=== PATIENT | male | born 1985 | race Caucasian/White ===

== ENCOUNTER 2020-05-20 13:30 | Emergency (ER) | payer OTHER ==
[~2020-05-20] VITALS: Ht 190.5 cm; Wt 136.1 kg
[2020-05-20] MEDS ORDERED: BACTRIM DS TAB1 EACH PO (16:04)
== END 2020-05-20 16:19 | disposition home or self-care (01) ==
LOC: ED 13:30
DX: L08.9 Local infection of the skin and subcutaneous tissue, unspecified (principal); I10 Essential (primary) hypertension; Z88.5 Allergy status to narcotic agent
CPT/HCPCS: 10060; 99282-25